=== PATIENT | female | born 1980 | race Hispanic/Latino ===

== ENCOUNTER 2017-01-14 15:58 | Emergency (ER) | payer SELFPAY ==
[~2017-01-14] VITALS: Ht 165.1 cm; Wt 87.5 kg
--- NOTE | 2017-01-14 17:05 | ED Lower Extremity ---
General Chief Complaint: Lower Extremity Stated Complaint: RIGHT KNEE PAIN INJ FROM SEIZURE X2 DAYS AGO Nursing Triage Note: TO TRIAGE ROOM VIA WC. COMPLAINS OF SEVERE RIGHT KNEE PAIN AFTER FALLING X2 DAYS AGO. WENT TO [facility] ET WAS TOLD TO COME TO ER. Nursing Sepsis Screen: No Definite Risk Source: patient Exam Limitations: no limitations History of Present Illness Time seen by provider: 17:02 Initial Comments The patient is a 36-year-old female who presents with complaints of right knee pain. She states that she has had multiple surgeries on this knee in the past for torn meniscus and other abnormalities. 2 days ago she had a seizure and fell heavily striking her knee on the edge of a step. She now reports extreme pain and also swelling and inability to ambulate Onset: last week (2 days ago) Pain/Injury Location: right knee Method of Injury: fell Allergies and Home Medications Allergies Coded Allergies: Penicillins (Verified Allergy, Severe, RASH, 01/14/17) duloxetine (Verified Allergy, Severe, RAPID BREATHING, 01/14/17) pregabalin (Verified Allergy, Severe, RAPID BREATHING, 01/14/17) Constitutional: see HPI EENTM: no symptoms reported Respiratory: no symptoms reported Cardiovascular: no symptoms reported Gastrointestinal: no symptoms reported Genitourinary: no symptoms reported Musculoskeletal: joint pain (right knee) Skin: no symptoms reported Psychiatric/Neurological: No Symptoms Reported Past [id number] Hx Patient Social History Recent Foreign Travel: No Contact w/Someone Who Travel: No Recent Infectious Disease Expo: No Recent Hopitalizations: No Surgeries Surgeries: Tonsillectomy Neurological Neurological Disorders: Seizure Disorder Psychosocial Behavioral Health Disorders: Anxiety, PTSD Physical Exam Vital Signs Vital Sign - Last 12Hours 01/14/17 16:29 Temp 98.0 Pulse 91 Resp 18 B/P (MAP) 123/91 Pulse Ox 99 Capillary Refill : Less Than 3 Seconds General Appearance: moderate distress HEENT: normal ENT inspection Neck: full range of motion Cardiovascular: normal peripheral pulses, regular rate, rhythm, no edema, no gallop, no JVD, no murmur Respiratory: chest non-tender, lungs clear, normal breath sounds, no respiratory distress, no accessory muscle use Neurologic/Psychiatric: system manager II-XII nml as tested, no motor/sensory deficits, alert, normal mood/affect, oriented x 3 Skin: normal color, warm/dry Lymphatic: no adenopathy Comments Old surgical scars are noted at the right knee. The knee is somewhat swollen. The knee is not hot or red. She expresses exquisite tenderness to light touch on the examiner's part Progress/Results/Core Measures Results/Orders My Orders Orders - MARIS BUSTILLOS MD Knee, Right, 3 Views (01/14/17 17:00) Ketorolac Injection (Toradol Injection) (01/14/17 17:45) Knee Immobilizer (01/14/17 17:34) Vital Signs/I&O Vital Sign - Last 12Hours 01/14/17 16:29 Temp 98.0 Pulse 91 Resp 18 B/P (MAP) 123/91 Pulse Ox 99 Blood Pressure Mean: 102 Departure Impression Impression: Primary Impression: effusion right knee Disposition: 01 HOME, SELF-CARE Condition: Stable/Unchanged Departure-Patient Inst. Decision time for Depature: 17:42 Referrals: [facility] (PCP) Primary Care Physician Patient Instructions: Knee Sprain (DC) Add. Discharge Instructions: All discharge instructions reviewed with patient and/or family. Voiced understanding. Continue your ibuprofen 800 mg 3 times daily. Use the knee immobilizer especially when you are up. Ice packs for the next 48 hours. Elevate the leg as much as possible for the next 48 hours. Next week see your provider for reevaluation of the knee and consideration of steroid injection or orthopedics referral MARIS BUSTILLOS MD Jan 14, 2017 17:05
--- NOTE | 2017-01-14 17:25 | Diagnostic Imaging Report ---
INDICATION: Severe right knee pain after falling two days ago. COMPARISON STUDIES: None. FINDINGS: Three views of the right knee demonstrate no fracture, dislocation or joint effusion. There are osteophytes in all three compartments with narrowing of the medial joint space. IMPRESSION: There are degenerative changes of the right knee with no acute findings. Dictated by: Dictated on workstation # [id number]
[2017-01-14] MEDS: KETOROLAC 60 MG/2 ML VIAL IM ONE (17:48)
[2017-01-14 17:58] VITALS: BP 115/89
== END 2017-01-14 17:58 | disposition home or self-care (01) ==
LOC: ER 16:02
DX: M25.461 Effusion, right knee (principal); M17.11 Unilateral primary osteoarthritis, right knee
CPT/HCPCS: 73562; 99283